=== PATIENT | female | born 1995 | race Caucasian/White ===

== ENCOUNTER 2018-12-04 17:40 | Emergency (ER) | payer BC, SELFPAY ==
[2018-12-04 17:40] VITALS: BP 139/71; PULSE 85; RESP 15; TEMP 36.7; O2SAT 98; BMI 21.7
--- NOTE | 2018-12-04 17:52 | RAD_ITS ---
STUDY: X-RAY - RIGHT FOOT CLINICAL: Female, 23 years old. Injury and pain. TECHNIQUE: 3 view(s) of the foot. COMPARISON: None. FINDINGS: Normal talus, calcaneus, and tarsal bones. Normal visualized subtalar, talonavicular, calcaneocuboid, tarsal and tarsometatarsal articulations. There is an oblique fracture within the mid/distal diaphysis of the fifth metatarsal. Normal metatarsophalangeal joint of the great toe. Normal interphalangeal joint of the great toe. Normal phalanges of the great toe. Normal second through fifth metatarsophalangeal joints. Normal interphalangeal joints and phalanges of the lesser toes. The soft tissue structures are unremarkable. RAD/Foot min 3 Views IMPRESSION: Fifth metatarsal fracture. Electronically Signed: Suellen Zamora MD at 18:37 EDT Tel , Service support ,
--- NOTE | 2018-12-04 17:53 | ED.DCSUM_ITS ---
- ER Visit Summary Date of Service: 12/04/18 Chief Complaint: Right foot pain History of Present Illness: The patient is a 23 F who presents with right foot pain that began last night. Patient states she was walking down some steps and stepped wrong. Patient states she felt a pop. Patient states her pain is worse with weightbearing and ambulation. Patient admits to increased swelling and bruising today. Patient denies any paresthesias or weakness. Patient denies any other injuries. Physical Examination: Vital signs are stable. Patient is afebrile. Patient is in no acute distress. Musculoskeletal exam reveals tenderness, edema, and ecchymosis over the lateral aspect of the right foot over the distal fourth and fifth metatarsals. There is no bony crepitance or obvious deformity. Range of motion was limited in all motions of the right foot secondary to pain. Pulses are equal bilaterally. Capillary refill is less than 2 seconds in all digits. Sensation was intact to light touch in all digits. Test Results: X-rays of the right foot were obtained. There is a midshaft fracture of the fifth metatarsal. There is minimal angulation. There is no displacement. Emergency Department Course and Treatment: Case was discussed with Dr. Gallo. He recommended placing the patient in a walking boot. Patient will follow up with him in the office. Patient was given a prescription for a short course of [place]. Patient was instructed to ice and elevate the right foot. Patient understood and was agreeable with the plan. All questions were answered. Disposition: Right fifth metatarsal fracture Impression: Discharge home This note was generated with [employer] dictation software. It may contain incorrect words, spelling, and punctuation that were not noted in review of the chart prior to signing ED Disposition - Plan for ED Patient: Disposition: Home or Assisted Living Diagnosis: Fracture of fifth metatarsal bone of right foot Instructions: FRACTURE, Foot Prescriptions: Hydrocodone Bitart/Apap 5-325 [Pitcairn 5MG-325MG] 1 tab PO Q6H PRN PRN 3 Days #10 tab PRN Reason: Pain Prescription Printed Referrals: Care Physician,No Primary [Primary Care Provider] - Mason Denis DO [STAFF PHYSICIAN] - 3-5 Days
== END 2018-12-04 20:18 | disposition home or self-care (01) ==
PROVIDERS: Emergency Provider Emergency Medicine
DX: S92.351A Displaced fracture of fifth metatarsal bone, right foot, initial encounter for closed fracture (principal); R11.0 Nausea; X50.1XXA Overexertion from prolonged static or awkward postures, initial encounter; Y93.01 Activity, walking, marching and hiking; Y92.9 Unspecified place or not applicable; F17.200 Nicotine dependence, unspecified, uncomplicated
CPT/HCPCS: 73630; 99283

== ENCOUNTER → 2020-02-23 | Outpatient (CLI) | payer BC, MEDICAID, SELFPAY ==
[2020-02-23 10:20] VITALS: BMI 21.7
[2020-02-23 18:19] LABS: Amphetamine Urine VISTA NEGATIVE (<1000 ng/mL); Barbiturate Urine VISTA NEGATIVE (< 200 ng/mL); Benzodiazepine Urine VISTA NEGATIVE (< 200 ng/mL); Cocaine Urine VISTA NEGATIVE (< 300 ng/mL); Ecstacy Urine VISTA NEGATIVE (< 500 ng/mL); Methadone Urine VISTA NEGATIVE (< 300 ng/mL); PCP Urine VISTA NEGATIVE (< 25 ng/mL); THC Urine VISTA NEGATIVE (< 50 ng/mL); Vista UDS pH Range 6
== END | disposition home or self-care (01) ==
LOC: LABSPEC 17:11
PROVIDERS: PCP Family Medicine; Referring Provider Obstetrics & Gynecology; Visit Provider Obstetrics & Gynecology
DX: Z34.80 Encounter for supervision of other normal pregnancy, unspecified trimester (principal)
CPT/HCPCS: 80307; 87086

== ENCOUNTER → 2020-03-26 09:46 | Outpatient (CLI) | payer BC, MEDICAID, SELFPAY ==
[2020-03-21 14:33] VITALS: BMI 23.1
[2020-03-26 10:23] LABS: Absolute Lymphocyte Count 2.94 X10^3/uL (0.83-4.51); Absolute Neutrophil Count 7.7 X10^3/uL (2.0-7.7); Basophil# 0.04 X10^3/uL; Basophil% 0.4 % (0-1); Eosinophil# 0.14 X10^3/uL; Eosinophils% 1.2 % (0-5); Hematocrit 34.4 % (37-47); Lymphocyte # 2.94 X10^3/ul (4.0); Lymphocyte % 25.8 % (19-41); Mean Corp Hgb Conc 34.9 g/dL (32-36); Mean Corpuscular Hgb 30.8 pg (27.0-32.0); Mean Corpuscular Volume 88.2 fL (81-99); Mean Platelet Vol. 10.3 fl (6.2-12.0); Monocyte# 0.54 X10^3/uL; Monocyte% 4.7 % (0-10); NRBC Flagged by Analyzer 0 % (0-5); Neutrophil # 7.68 X10^3/uL (2.7-7.7); Neutrophil % 67.5 % (47-70); Platelet Count 337 K/mm3 (150-450); RBC Distribution Width CV 12.7 % (11.6-14.6); RBC Distribution Width SD 40.6 fl (35.1-43.9); White Blood Count 11.4 K/mm3 (4.4-11.0)
[2020-03-26 14:40] LABS: HIV - WCH Non-Reactive (Nonreactive); Hepatitis B Surface Antigen Non-Reactive (Nonreactive); Hepatitis C Antibody Non-Reactive (Nonreactive); Rubella IgG 310.3 IU/mL
[2020-03-29 01:11] LABS: Rapid Plasmin Reagin (RPR) NONREACTIVE (NONREACTIVE)
== END ==
PROVIDERS: PCP Family Medicine; Referring Provider Obstetrics & Gynecology; Visit Provider Obstetrics & Gynecology
DX: Z34.81 Encounter for supervision of other normal pregnancy, first trimester (principal)
CPT/HCPCS: 36415; 85025; 86592; 86703; 86762; 86803; 86850; 86900; 86901; 87340

== ENCOUNTER → 2020-05-15 10:53 | Outpatient (CLI) | payer BC, MEDICAID, SELFPAY ==
[2020-05-15 10:38] VITALS: BMI 24.0
== END ==
PROVIDERS: PCP Family Medicine; Referring Provider Obstetrics & Gynecology; Visit Provider Obstetrics & Gynecology
DX: Z36.9 Encounter for antenatal screening, unspecified (principal)
CPT/HCPCS: 36415

== ENCOUNTER → 2020-07-12 10:23 | Outpatient (CLI) | payer BC, MEDICAID, SELFPAY ==
[2020-06-13 10:36] VITALS: BMI 25.3
[2020-07-12 10:41] LABS: Absolute Lymphocyte Count 1.86 X10^3/uL (0.83-4.51); Absolute Neutrophil Count 7.5 X10^3/uL (2.0-7.7); Basophil# 0.02 X10^3/uL; Basophil% 0.2 % (0-1); Eosinophil# 0.12 X10^3/uL; Eosinophils% 1.2 % (0-5); Hematocrit 35.7 % (37-47); Hemoglobin 11.8 g/dL (12.0-15.0); Lymphocyte # 1.86 X10^3/ul (4.0); Lymphocyte % 18.6 % (19-41); Mean Corp Hgb Conc 33.1 g/dL (32-36); Mean Corpuscular Hgb 30.2 pg (27.0-32.0); Mean Corpuscular Volume 91.3 fL (81-99); Mean Platelet Vol. 10.5 fl (6.2-12.0); NRBC Flagged by Analyzer 0 % (0-5); Neutrophil # 7.47 X10^3/uL (2.7-7.7); Neutrophil % 74.6 % (47-70); Platelet Count 296 K/mm3 (150-450); RBC Distribution Width CV 12.6 % (11.6-14.6); RBC Distribution Width SD 41.5 fl (35.1-43.9); Red Blood Count 3.91 M/mm3 (4.2-5.4)
[2020-07-12 10:54] LABS: Glucose Challenge Gest 1H 50g 101 mg/dL (70-140)
== END ==
PROVIDERS: PCP Family Medicine; Referring Provider Nurse Practitioner Women's Health; Visit Provider Nurse Practitioner Women's Health
DX: Z34.90 Encounter for supervision of normal pregnancy, unspecified, unspecified trimester (principal); Z13.1 Encounter for screening for diabetes mellitus
CPT/HCPCS: 36415; 82950; 85025

== ENCOUNTER 2020-07-14 06:21 | Emergency (ER) | payer OTHER, BC, MEDICAID, SELFPAY ==
[2020-07-12 10:36] VITALS: BMI 26.3
[2020-07-14 06:22] VITALS: BP 117/58; PULSE 90; RESP 16; TEMP 36.9; O2SAT 100; BMI 26.0
--- NOTE | 2020-07-14 06:33 | RAD_ITS ---
STUDY: X-RAY - LEFT KNEE REASON FOR EXAM: Female, 25 years old. H/O KNEE POPPING. PT FELL AT WORK TECHNIQUE: 3 view(s) of the knee. COMPARISON: None. FINDINGS: Normal visualized distal femur. Normal visualized proximal tibia and fibula. Normal proximal tibiofibular articulation. Normal medial femorotibial compartment. Normal lateral femorotibial compartment. Normal patellofemoral articulation. The soft tissue structures are unremarkable. RAD/Knee 3 Views IMPRESSION: Normal x-ray examination of the knee. Electronically Signed: Manish Vázquez MD at 7:13 EST Tel , Service support ,
--- NOTE | 2020-07-14 07:13 | ED.DCSUM_ITS ---
- ER Visit Summary Date of Service: 07/14/20 Chief Complaint: [Injury to left knee] History of Present Illness: The patient is a 25 F [presents to the emergency department complaint of an injury to the left knee that occurred this morning. Patient states that she turned while at work and her left knee popped causing her to fall onto her left side. Patient states that she has had this issue her entire life. She has this issue about every 3 months. Patient is 29 weeks . Work made her come in and get evaluated. She denies any abdominal pain or vaginal bleeding. Patient has minimal discomfort at this time.] Physical Examination: [HEENT-PERRLA, EOMI. Cranial nerves II through XII grossly intact. TMs clear. Mucous membranes moist. No adenopathy. Cardiovascular-regular rate and rhythm without murmur or ectopy Lungs-clear to auscultation, chest wall stable without crepitus or subcu emphysema Abdomen-normoactive bowel sounds, soft, nontender, no rebound or rigidity, no peritoneal signs. Extremities-intact ?4, normal range of motion, normal pulses, atraumatic. Left knee-patient has some minimal discomfort over the left knee just proximal to the patella that seems to reproduce her pain. There is no effusion noted. Ligamentously stable. Neurovascular intact distally. Good range of motion in flexion extension. No evidence of patellar subluxation at this time.] Test Results: [X-rays of the left knee obtained read by myself as no acute fractures or dislocations. Official report from radiology pending.] Emergency Department Course and Treatment: [Patient given a knee immobilizer. I suspect patient may have had a patellar subluxation that has since spontaneously reduced.] Treatment Plan: Patient will be referred to orthopedics for follow-up in 3 to 5 days. [] Disposition: [Discharged home in stable condition] Impression: [Left knee sprain-possible internal derangement] This note was generated with [employer] dictation software. It may contain incorrect words, spelling, and punctuation that were not noted in review of the chart prior to signing ED Disposition - Plan for ED Patient: Referrals: Sheldon Mac MD [Primary Care Provider] -
--- NOTE | 2020-07-14 07:16 | ED.DEP ---
ED Disposition - Plan for ED Patient: Instructions: ED Meniscal Injury Knee Poss Referrals: Sheldon Mac MD [Primary Care Provider] - Escobar Purcell DO [STAFF PHYSICIAN] - 3-5 Days
[2020-07-14 07:33] VITALS: BP 104/70; PULSE 103; RESP 20; O2SAT 100
== END 2020-07-14 08:14 | disposition home or self-care (01) ==
LOC: ED 07:23
PROVIDERS: Emergency Provider Emergency Medicine; PCP Family Medicine
DX: O9A.213 Injury, poisoning and certain other consequences of external causes complicating pregnancy, third trimester (principal); S83.92XA Sprain of unspecified site of left knee, initial encounter; W19.XXXA Unspecified fall, initial encounter; Y93.89 Activity, other specified; Y92.9 Unspecified place or not applicable; Y99.0 Civilian activity done for income or pay; O99.333 Smoking (tobacco) complicating pregnancy, third trimester; F17.290 Nicotine dependence, other tobacco product, uncomplicated; Z3A.29 29 weeks gestation of pregnancy
CPT/HCPCS: 73562; 99284

== ENCOUNTER → 2020-09-06 | Outpatient (CLI) | payer BC, MEDICAID, SELFPAY ==
[2020-09-06 15:16] VITALS: BMI 26.4
== END | disposition home or self-care (01) ==
LOC: LABSPEC 16:43
PROVIDERS: PCP Family Medicine; Visit Provider Obstetrics & Gynecology
DX: Z34.90 Encounter for supervision of normal pregnancy, unspecified, unspecified trimester (principal)
CPT/HCPCS: 87081

== ENCOUNTER 2020-09-07 22:30 | Inpatient (IN) | payer MEDICAID, SELFPAY ==
[2020-09-06 15:16] VITALS: BMI 26.4
[2020-09-07 22:23] VITALS: BMI 26.8
[2020-09-07 22:25] VITALS: BP 109/61; PULSE 91; O2SAT 98
[2020-09-07] MEDS: Lactated Ringers 500 ML 999 ML IV (22:40)
--- NOTE | 2020-09-07 22:45 | HP.PCM_ITS ---
- Problem List (1) Active labor at term Status: Acute (2) 36 weeks gestation of Status: Acute Comment: COVID test ordered 09/05/20 (sche 09/21 at 1:40pm) (3) History of tetanus, diphtheria, and acellular pertussis booster vaccination (Tdap) Status: Acute Comment: 07/12/20 (4) ASCUS of cervix with negative high risk HPV Status: Acute Comment: On pap 02/01/2020 - needs repeat cotesting in 3 years (5) Supervision of other normal Status: Acute Comment: PRR ROXANNE 09/28/20 girl Alis PC: Amy Lora BF: Sean (Redd-5) (6) Status: Acute Qualifiers: Comment: genetic- low risk female, carrier- neg and NTD- negative; NL anatomy History and Physical Date of Admission: 09/07/20 Intake Vital Signs 09/06/20 Height 5 ft 1 in 09/06/20 Weight: 140 lb 09/06/20 BMI 26.4 09/06/20 BP 99/74 Intake Visit Reasons: 37WK OB Chief Complaint: est ob Resource Specialist Required: No Is patient in pain?: No Allergies aspirin Allergy (Verified 09/06/20 15:18) Unknown Medications docosahexaenoic acid 200 mg capsule mg PO 02/23/20 history Confirmed 09/06/20 Last Menstral Period: 12/23/19 Zika: Zika virus screening: Negative : No PFSH PFSH Medical History No significant medical problems (Acute) Surgical History No significant past surgical history (Acute) Social History (Updated 09/06/20 @ 15:[address] Dione Hoffman MD) adopted: No household members: children housing: apartment number of children: 2 current occupational status: employed current occupation: [employer] pets and animals: Yes sexually active: Yes Smoking Status: Current every day smoker second hand exposure: No alcohol intake: never substance use type: does not use seatbelt use: always do you feel safe at home: Yes additional social history: [place]- Sean ([place] [employer]) Pregancy History 3 Elective abortions Hx Para 2 Spontaneous abortions Hx # Term Pregnancies Ectopic pregnancies Hx # Pregnancies Multiple births # of living children 2 Past Pregnancies Del. Date Name GA/Weeks Outcome Route Bth Weight Gen Labor Lgth Anesthesia Del Locatn Provider FOB Unknown 04/16/12 Guido 39 live - full term 7lbs Male 5 hours epidural [facility] [place] Unknown 08/01/15 Amy 41 live - full term 7lbs Female 9 hours epidural [facility] [place] Delivery Date: no complications Kaykay Cooper Delivery Date: decels during labor Kaykay Cooper HPI 37WK OB : Details: SHAINA DSOUZA is a 25 year old presents at 37w2d weeks in active labor for centimeters dilated with regular contractions OB Visit ROXANNE Calculator Estimated Delivery Date Method Current WG Current Estimate 09/28/20 LMP (Certain) 36w 6d Other Estimates 09/28/20 Ultrasound #1 36w 6d Expected Delivery Route/Plan / Labor Preferences- CB/BF classes: encouraged labor support person: Sean labor intervention preferences: pain management options preferred: epidural cut cord/dad catch: yes : yes PP control planned: considering IUD discussed possible routes of delivery and associated risks: special requests: Specific Issue/Plans flu vaccine: no tdap vaccine: yes rhogam: na LARC form signed: yes movement and labor precautions reviewed. Problem list reviewed and updated with the most current plan of care details and appropriate orders placed. Relevant counseling for the gestational age provided. Continue routine care and follow up unless otherwise noted in visit notes/problem list details Initial Weight: 120 lb Date EGA Weight BP Urine Prot Glucose FHR FuHt Pres Dilation Effaced St Visit Note 02/23/20 8w 6d 122 lb (+2 lb) 122 lb (+2 lb) 118/70 168 GP - CRL 20mm consistent with LMP. GP - CRL 20mm consistent with LMP. Had NOB at [facility] with all labs and pap. Will get ROR. 03/21/20 12w 5d 122 lb 8 oz (+2 lb 8 oz) 106/62 Negative Negative 160 GP - no cramping or bleeding. Anatomy scan order placed. 04/19/20 16w 6d 122 lb 4 oz (+2 lb 4 oz) 90/60 Negative Negative 154 NO VB, LOF. Denies concerns. NO VB, LOF. Denies concerns. FOB with patient today 05/15/20 20w 4d 127 lb (+7 lb) 106/58 Negative Negative 150 Sm- no vb lof good fm no regular ctx Sm- no vb lof good fm no regular ctx co back pain. physical therapy consult for back pain 06/13/20 24w 5d 134 lb 2 oz (+14 lb 2 oz) 104/58 Negative Negative 151 24 MH-No VB, LOF. Good FM. 07/12/20 28w 6d 139 lb 4 oz (+19 lb 4 oz) 118/60 Negative Negative 141 28 MH-No Vb, LOF. Good FM. 28 wk labs, tdap, larc. Considering IUD 07/26/20 30w 6d 139 lb 2 oz (+19 lb 2 oz) 120/78 Negative Negative 147 31 MH-NO VB, LOF. Good FM. Denies concerns. 08/10/20 33w 0d 142 lb 2 oz (+22 lb 2 oz) 110/72 Negative Negative 145 33 GP - no LOF, VB, DFM, ctx. Having pelvic pressure. Discussed supportive measure to help with discomfort. 08/24/20 35w 0d 138 lb 6 oz (+18 lb 6 oz) 120/62 Negative Negative 155 35 GP - no LOF, VB, DFM, ctx. Denies complaints. 09/06/20 36w 6d 140 lb (+20 lb) 99/74 Negative Negative 150 37 Cephalic 2 10 -3 Sm- no vb lof good fm no regular ctx gbs today ACOG First Trimester First Trimester: Desire for , Alcohol, Tobacco Cessation, Illicit/Recreational Drug/Substance Use, Intimate Partner Violence, Barriers to care, Unstable Housing, Communication Barriers, Environmental/Work Hazards, Anticipated Course of Care, Toxoplasmosis Precations, Use of Any medications, Sexual activity, Exercise, Dental Care, Sauna/Hot tub use, Seat Belt use, Childbirth classes/Hospital facilities, , Travel, Indicat ions for US and Screening for Aneuploidy Second Trimester Second Trimester: Signs and Symptoms of Labor, Selecting a care provider, Reproductive Life Planning, Care Planning, Depression/Anxiety and Intimate Partner Violence; discussed Tobacco Cessation Diagnostics Diagnostics Diagnostics Blood Type A POSITIVE 03/26/20 Antibody Screen NEGATIVE 03/26/20 Glucose 1 Hr 50 gm 101 mg/dL (70-140) 07/12/20 HIV 1&2 Antibody Non-Reactive (Nonreactive) 03/26/20 Rubella IgG Antibody 310.3 IU/mL 03/26/20 Hgb 11.8 g/dL (12.0-15.0) L 07/12/20 Hct 35.7 % (37-47) L 07/12/20 RPR NONREACTIVE (NONREACTIVE) 03/26/20 Details: HIV: Urine Culture: Sequential Screen: NIPT Screen: ROS Const Reports system reviewed and no additional complaints, except as documented Card Reports system reviewed and no additional complaints, except as documented Resp Reports system reviewed and no additional complaints, except as documented GI Reports system reviewed and no additional complaints, except as documented, Reports nausea Reports system reviewed and no additional complaints, except as documented Musc Reports system reviewed and no additional complaints, except as documented all other systems reviewed and negative Exam Const General: cooperative, healthy appearing, comfortable HENMT Head: normal to inspection Nose: external nose normal Face and sinus: normal facial exam Neck Neck: normal visual inspection, full ROM, no lymphadenopathy Thyroid: thyroid normal Chest Chest palpation & inspection: normal inspection of the chest Resp Effort & Inspection: normal respiratory effort GI Inspection: normal to inspection Palpation: soft, other (gravid uterus) Other: infant vertex and appropriate size for gestational age Other: Cervical Exam: 4 cm Extrem General: pedal edema Results POC Urinalysis 2 Dip (Clinic) Office Urine Glucose Negative Last Edit by Jordyn Jimenez on 09/06/20 15:2 3 Office Urine Protein Negative Last Edit by Jordyn Jimenez on 09/06/20 15:2 3 Assessment & Plan Problems 1. Z34.90 genetic- low risk female, carrier- neg and NTD- negative; NL anatomy 2. Supervision of other normal Z34.80 PRR ROXANNE 09/28/20 girl Alis PC: Amy Lora BF: Sean (Redd-5) 3. ASCUS of cervix with negative high risk HPV R87.610 On pap 02/01/2020 - needs repeat cotesting in 3 years 4. History of tetanus, diphtheria, and acellular pertussis booster vaccination (Tdap) Z92.29 07/12/20 5. 36 weeks gestation of Z3A.36 COVID test ordered 09/05/20 (sche 09/21 at 1:40pm) Patient presents IAL, plan expectant management for , pitocin/AROM PRN if needed. Pain management: Plans epidural. GBS negative. Management of any complications: None I have reviewed the [facility] and made any clinically relevant updates. Orders Orders: POC Urinalysis 2 Dip (Clinic) Today Culture, Group B Streptococcus Today Z34.90 Coding Level of Care Code OB Routine Diagnoses Z34.90 Supervision of other normal Z34.80 ASCUS of cervix with negative high risk HPV R87.610 History of tetanus, diphtheria, and acellular pertussis booster vaccination (Tdap) Z92.29 36 weeks gestation of Z3A.36
[2020-09-07 23:05] LABS: Absolute Lymphocyte Count 2.55 X10^3/uL (0.83-4.51); Absolute Neutrophil Count 7.2 X10^3/uL (2.0-7.7); Basophil# 0.02 X10^3/uL; Basophil% 0.2 % (0-1); Eosinophil# 0.06 X10^3/uL; Eosinophils% 0.6 % (0-5); Hematocrit 35.1 % (37-47); Hemoglobin 11.5 g/dL (12.0-15.0); Lymphocyte # 2.55 X10^3/ul (4.0); Lymphocyte % 24.2 % (19-41); Mean Corp Hgb Conc 32.8 g/dL (32-36); Mean Corpuscular Hgb 29.5 pg (27.0-32.0); Mean Platelet Vol. 10.8 fl (6.2-12.0); Monocyte# 0.66 X10^3/uL; Monocyte% 6.3 % (0-10); NRBC Flagged by Analyzer 0 % (0-5); Neutrophil # 7.19 X10^3/uL (2.7-7.7); Neutrophil % 68.1 % (47-70); Platelet Count 311 K/mm3 (150-450); RBC Distribution Width CV 12.9 % (11.6-14.6); RBC Distribution Width SD 42.3 fl (35.1-43.9); White Blood Count 10.5 K/mm3 (4.4-11.0)
[2020-09-07 23:09] LABS: ROM Internal Control Test YES-OK TO RESULT pt. (Internal QC)
[2020-09-07 23:10] LABS: ROM Patient Test Negative (Negative)
[2020-09-07] MEDS: Lactated Ringers 1,000 ML 200 ML IV (23:15)
[2020-09-07 23:46] VITALS: BP 99/56; PULSE 85
[2020-09-07 23:55] VITALS: PULSE 77; O2SAT 99
[2020-09-07 23:59] VITALS: PULSE 92; O2SAT 88
[2020-09-08] VITALS (58 sets, daily range): BP systolic 85–120; BP diastolic 50–67; PULSE 35–101; RESP 16–18; TEMP 35.9–37.2; O2SAT 85–100
[2020-09-08] MEDS: fentaNYL-bupivacaine (epidural) 100 ML BAG EPIDURAL ×2 (00:05→05:18)
[2020-09-08 00:21] LABS: Group B Strep DNA By PCR Negative (Negative); Internal Control PASS; Probe Check PASS; Specimen Processing Control PASS
[2020-09-08] MEDS: Ondansetron 4 MG/2 ML Vial IV (01:25)
[2020-09-08] MEDS: Lactated Ringers 500 ML 999 ML IV (01:25)
[2020-09-08] MEDS: Oxytocin 30 units/NS 500 ml 30 UNITS/500 ML IV.SOLN IV (03:50)
[2020-09-08] MEDS: proCHLORPERazine 10 MG/2 ML Vial IV (04:28)
[2020-09-08] MEDS: Lactated Ringers 1,000 ML 200 ML IV (04:38)
[2020-09-08] MEDS: Oxytocin 30 units/NS 500 ml 30 UNITS/500 ML IV.SOLN 334 UNITS IV (07:08)
--- NOTE | 2020-09-08 07:28 | PCM.OPRPT ---
Problem List (1) Active labor at term Status: Acute (2) 36 weeks gestation of Status: Acute Comment: COVID test ordered 09/05/20 (sche 09/21 at 1:40pm) (3) History of tetanus, diphtheria, and acellular pertussis booster vaccination (Tdap) Status: Acute Comment: 07/12/20 (4) ASCUS of cervix with negative high risk HPV Status: Acute Comment: On pap 02/01/2020 - needs repeat cotesting in 3 years (5) Supervision of other normal Status: Acute Comment: PRR ROXANNE 09/28/20 judah Snell PC: Amy Lora BF: Sean (Redd-5) (6) Status: Acute Qualifiers: Comment: genetic- low risk female, carrier- neg and NTD- negative; NL anatomy Vaginal Delivery Maternal Presentation: Active Labor ial Method of Induction: Pitocin Amniotic Membrane Rupture Type: Artificial Amniotic Fluid Description: Clear Date of Procedure: 09/08/20 Pre-Operative Diagnosis: ial Post-Operative Diagnosis: same Surgery/ Procedure Performed: Spontaneous Vaginal Delivery Type of Anesthesia: Epidural Description of Procedure: Patient began pushing and delivered the head in the SHERON presentation. The head was delivered atraumatically . The anterior and posterior shoulders delivered without complication followed by the rest of the infant and the was placed on the maternal abdomen. Delayed cord clamping was employed for approximately 60 seconds. Cord was clamped and cut and gentle traction was applied to the cord and the placenta delivered spontaneously immediately following it was noted to be intact with three-vessel cord. The perineum and vagina were inspected and noted to have no laceration. EBL was 50 cc. Patient and infant tolerated delivery well. Presentation: SHERON Placental Delivery Description: Spontaneous Placenta Disposition: [facility] Cord Vessel Description: 3 Vessels Cord Entanglement: None Estimated Blood Loss: 50 A gender: Female Episiotomy Description: None Laceration: None Medications given after delivery: IV Pitocin Complications: None Multi Select Codes - Urinary/Genital Urinary/Genital CPT Codes: 29000 Vaginal Delivery+ PP Care([facility])
--- NOTE | 2020-09-08 07:30 | DCINST_ITS ---
Discharge Diet: No Restrictions Discharge Activity: Return to Normal Activity, May not drive while taking narcotic pain medications., May Shower May resume sexual activity in: 4-6 weeks Call your doctor if your incision/area has: Continuous Slow Oozing, Sudden Increased Bleeding, Increased Pain/ Swelling, Increased Redness, Foul Smelling Discharge Additional Instructions: If you experience any of the following, contact your healthcare provider. * Bleeding that soaks a pad every hour for 2 hours * Fever 100.4 or higher * Unrelieved incision or abdominal pain * Swelling, redness, discharge or bleeding from your incision or episiotomy site * Your incision begins to separate * Problems urinating (including inability to urinate or burning while urinating). * Visual changes * Severe headache * Flu-like symptoms * Pain or redness in one of both of your breasts * Pain, warmth, tenderness or swelling in your legs, especially the calf area * Frequent nausea and vomiting * Symptoms of depression or anxiety If you experience any of the following, call 911 or go to the nearest Emergency Room. * Chest pain * Problems breathing * Seizure activity * Partial or complete paralysis of a body part, slurred speech, weakness or drooping of the face, or a sudden inability to walk or hold your balance Allergies/Adverse Reactions: Allergies aspirin Allergy (Mild, Verified 09/07/20 23:49) Unknown pt states uses asa and ibuprophen no problem Medications to take at Discharge Pnv No.95/Ferrous Fum/Folic AC [ Caplet] 1 each PO DAILY 09/07/20 Please Follow Up With: Dione Hoffman MD - [phone] When: Call to make an appointment with your doctor in 6 weeks. If you had elevated Blood pressure or 4th degree laceration you will need to be seen in 2 weeks. Primary Care Physician: Sheldon Mac MD [Primary Care Provider] - Test Results: Test results from this visit will be discussed in further detail at your follow- up appointment, if applicable.
--- NOTE | 2020-09-08 07:30 | PCM.DCVAG ---
Discharge Diet: No Restrictions Discharge Activity: Return to Normal Activity, May not drive while taking narcotic pain medications., May Shower May resume sexual activity in: 4-6 weeks Call your doctor if your incision/area has: Continuous Slow Oozing, Sudden Increased Bleeding, Increased Pain/ Swelling, Increased Redness, Foul Smelling Discharge Additional Instructions: If you experience any of the following, contact your healthcare provider. Bleeding that soaks a pad every hour for 2 hours Fever 100.4 or higher Unrelieved incision or abdominal pain Swelling, redness, discharge or bleeding from your incision or episiotomy site Your incision begins to separate Problems urinating (including inability to urinate or burning while urinating). Visual changes Severe headache Flu-like symptoms Pain or redness in one of both of your breasts Pain, warmth, tenderness or swelling in your legs, especially the calf area Frequent nausea and vomiting Symptoms of depression or anxiety If you experience any of the following, call 911 or go to the nearest Emergency Room. Chest pain Problems breathing Seizure activity Partial or complete paralysis of a body part, slurred speech, weakness or drooping of the face, or a sudden inability to walk or hold your balance Allergies/Adverse Reactions: Allergies aspirin Allergy (Mild, Verified 09/07/20 23:49) Unknown pt states uses asa and ibuprophen no problem Medications to take at Discharge Pnv No.95/Ferrous Fum/Folic AC [ Caplet] 1 each PO DAILY 09/07/20 Please Follow Up With: Dione Hoffman MD - [phone] When: Call to make an appointment with your doctor in 6 weeks. If you had elevated Blood pressure or 4th degree laceration you will need to be seen in 2 weeks. Primary Care Physician: Sheldon Mac MD [Primary Care Provider] - Test Results: Test results from this visit will be discussed in further detail at your follow-up appointment, if applicable.
--- NOTE | 2020-09-08 12:02 | NURSING ---
both parents are CPR certified
--- NOTE | 2020-09-08 12:03 | ED.RN ---
pt asymptomatic. denies feeling dizzy or lightheaded
[2020-09-08] MEDS: Acetaminophen 500 MG Tablet 1000 MG PO (16:38)
[2020-09-09] MEDS: Acetaminophen 500 MG Tablet 1000 MG PO ×2 (04:02→13:25)
[2020-09-09 04:05] VITALS: BP 98/50; PULSE 62; RESP 16; TEMP 36.6; O2SAT 97; O2SAT 98
[2020-09-09 04:06] VITALS: BP 98/50; PULSE 62
[2020-09-09 07:44] VITALS: BP 95/54; PULSE 58
[2020-09-09 08:00] VITALS: BP 95/54; PULSE 58; RESP 15; TEMP 36.6
--- NOTE | 2020-09-09 08:44 | PN.OBGYN_ITS ---
Patient Problems: Active and Suspected Problems (Last Reviewed 09/06/20 @ 15:19 by Jordyn Jimenez) Active labor at term (Acute) 36 weeks gestation of (Acute) COVID test ordered 09/05/20 (sche 09/21 at 1:40pm) History of tetanus, diphtheria, and acellular pertussis booster vaccination (Tdap) (Acute) 07/12/20 ASCUS of cervix with negative high risk HPV (Acute) On pap 02/01/2020 - needs repeat cotesting in 3 years Supervision of other normal (Acute) PRR ROXANNE 09/28/20 girl Alis PC: Amy Lora BF: Sean (Redd-5) (Acute) genetic- low risk female, carrier- neg and NTD- negative; NL anatomy Subjective: Patient doing well without complaints. Tolerating PO. Ambulating and voiding wit hout difficulty. feeding well. Denies chest pain, shortness of breath, calf pain/swelling, fevers, chills, lightheadedness. - Physical Exam Vitals/I&O's: Vital Signs Temp Pulse Resp BP Pulse Ox 97.9 F 58 L 15 95/54 L 97 09/09/20 08:00 09/09/20 08:00 09/09/20 08:00 09/09/20 08:00 09/09/20 04:05 Oxygen Delivery Method Room Air Weight: 141 lb 15.643 oz Body Mass Index (BMI) 26.8 Intake and Output for Last 24 Hours 09/07/20 09/08/20 09/09/20 23:59 23:59 23:59 Intake Total 500 / 500 2972.34 / 2972.34 Output Total 400 / 400 1800 / 1800 Balance 100 / 100 1172.34 / 1172.34 General: Alert, Oriented x3 Microbiology Past 72 Hours 09/07/20 23:00 Mucosa - Nose SARS-CoV-2 Antigen (Rapid) - Final Current Medications Acetaminophen (Acetaminophen 500 Mg Tablet) 1,000 mg PO Q8H PRN PRN PRN Reason: Pain Score 1-3 Last Admin: 09/09/20 04:02 Dose: 1,000 mg Documented by: Bisacodyl (Bisacodyl 10 Mg Suppository) 10 mg RC UD PRN PRN Reason: If no BM Dibucaine (Dibucaine 30 Gm Tube) 1 applic TOPICAL TID PRN PRN; Protocol PRN Reason: Discomfort Hydrocortisone (Hydrocortisone 2.5% Crm) 1 applic TOPICAL TID PRN PRN; Protocol PRN Reason: Discomfort Methylergonovine Maleate (Methylergonovine 0.2 Mg/Ml Ampul) 0.2 mg IM X1 PRN PRN Reason: Excess bleeding/uterine atony Ondansetron HCl (Ondansetron 4 Mg/2 Ml Vial) 4 mg IV Q4H PRN PRN PRN Reason: Nausea Oxycodone HCl (Oxycodone 5 Mg Tablet) 5 - 10 mg PO Q4H PRN PRN PRN Reason: Pain Score 4-10 Senna/Docusate Sodium (Senna/Docusate Sodium 1 Tablet) 1 - 2 tablet PO DAILY PRN PRN PRN Reason: Constipation Simethicone (Simethicone 80 Mg Tablet) 80 mg PO PCHS PRN PRN Reason: Indigestion/Stomach pain Sodium Chloride (0.9% Saline Lock 10 Ml Syringe) 5 - 15 ml IV UD PRN PRN Reason: SALINE FLUSH Medical Necessity - Tobacco Use Smoking Status: Former smoker Assessment/Plan All Active Problems Active labor at term (Acute) 36 weeks gestation of (Acute) History of tetanus, diphtheria, and acellular pertussis booster vaccination (Tdap) (Acute) ASCUS of cervix with negative high risk HPV (Acute) Supervision of other normal (Acute) (Acute) Other social stressor (Resolved) s/p PPD # 1 1. routine post delivery care 2. breast feeding- support given 3. rh positive 4. rubella immune
[2020-09-09 13:23] VITALS: BP 107/54; PULSE 62
[2020-09-09 13:27] VITALS: BP 107/54; PULSE 62; RESP 15; TEMP 36.5
== END 2020-09-09 14:30 | disposition home or self-care (01) | DRG 807 ==
LOC: WPOUT 22:33 → WP 09-08 07:12
PROVIDERS: Admitting Provider Obstetrics & Gynecology; PCP Family Medicine; Referring Provider Obstetrics & Gynecology; Visit Provider Obstetrics & Gynecology
DX: O34.43 Maternal care for other abnormalities of cervix, third trimester (principal); Z37.0 Single live birth; R87.620 Atypical squamous cells of undetermined significance on cytologic smear of vagina (ASC-US); O99.334 Smoking (tobacco) complicating childbirth; F17.200 Nicotine dependence, unspecified, uncomplicated; Z3A.37 37 weeks gestation of pregnancy
CPT/HCPCS: 59025; 59050; 84112; 85025; 86850; 86900; 86901; 87081; 87426; 87653; 99218; J7120; G0378; J2405

== ENCOUNTER 2021-08-13 10:25 | Outpatient (CLI) | payer MEDICAID, SELFPAY ==
[2021-08-13 11:25] LABS: hCG Titer Quant., Serum 276 mIU/mL (1-3)
== END 2021-08-13 23:59 | disposition home or self-care (01) ==
PROVIDERS: PCP Family Medicine; Referring Provider Obstetrics & Gynecology; Visit Provider Obstetrics & Gynecology
DX: N91.2 Amenorrhea, unspecified (principal)
CPT/HCPCS: 36415; 84702

== ENCOUNTER 2021-08-15 12:56 | Outpatient (CLI) | payer MEDICAID, SELFPAY ==
[2021-08-15 14:06] LABS: hCG Titer Quant., Serum 73 mIU/mL (1-3)
== END 2021-08-15 23:59 | disposition home or self-care (01) ==
LOC: PAVLAB 12:56
PROVIDERS: PCP Family Medicine; Referring Provider Obstetrics & Gynecology; Visit Provider Obstetrics & Gynecology
DX: N91.2 Amenorrhea, unspecified (principal)
CPT/HCPCS: 36415; 84702

== ENCOUNTER 2021-09-04 09:38 | Outpatient (CLI) | payer MEDICAID, SELFPAY ==
[2021-09-04 22:07] LABS: Chlamydia By Nucleic Acid AMP Negative (Negative)
[2021-09-04 22:13] LABS: Gonococcus By Nucleic Acid AMP Negative (Negative)
== END 2021-09-04 23:59 | disposition home or self-care (01) ==
LOC: LABSPEC 09:39
PROVIDERS: PCP Family Medicine; Visit Provider Nurse Practitioner Women's Health
DX: Z11.3 Encounter for screening for infections with a predominantly sexual mode of transmission (principal)
CPT/HCPCS: 87491; 87591

== ENCOUNTER → 2022-04-01 | Outpatient (CLI) | payer MEDICAID, SELFPAY ==
[2022-04-04 08:09] LABS: Chlamydia By Nucleic Acid AMP Negative (Negative)
[2022-04-05 18:59] LABS: Gonococcus By Nucleic Acid AMP Negative (Negative)
== END | disposition home or self-care (01) ==
PROVIDERS: PCP Family Medicine; Visit Provider Nurse Practitioner Women's Health
DX: N89.8 Other specified noninflammatory disorders of vagina (principal)
CPT/HCPCS: 87070; 87205; 87491; 87591

== ENCOUNTER → 2022-06-20 | Outpatient (CLI) | payer MEDICAID, SELFPAY ==
[2022-06-23 21:07] LABS: Chlamydia By Nucleic Acid AMP Positive (Negative)
[2022-06-23 22:07] LABS: Gonococcus By Nucleic Acid AMP Negative (Negative)
== END | disposition home or self-care (01) ==
LOC: LABSPEC 12:28
PROVIDERS: PCP Family Medicine; Visit Provider Registered Nurse
DX: N89.8 Other specified noninflammatory disorders of vagina (principal)
CPT/HCPCS: 87070; 87205; 87491; 87591

== ENCOUNTER → 2022-07-30 | Outpatient (CLI) | payer MEDICAID, SELFPAY ==
--- NOTE | 2022-07-30 13:13 | US_ITS ---
STUDY: ULTRASOUND OF THE FEMALE PELVIS - COMPLETE REASON FOR EXAM: Female, 27 years old. Check position of IUD LMP: 07/04/2022. TECHNIQUE: Transabdominal and Transvaginal TECHNICAL QUALITY: Adequate. COMPARISON: None. FINDINGS: The uterus is retroverted and is in a midline position. The uterus measures 9.9 cm x 6.2 cm x 4.9 cm. There is a Nabothian cyst of the cervix. The endometrium measures 17.1 mm in thickness, and is hyperechoic. There is no demonstrated endometrial mass. There is no demonstrated myometrial mass. I.U.D. - The patient does have an I.U.D. The right ovary is visualized. The right ovary measures 2.8 cm x 2.5 cm x 2 cm. There is a 2.1 cm x 1.8 cm x 1.8 cm heterogeneous hypoechoic density. Follow-up is recommended. There is no visualized right adnexal mass or complex lesion. There is normal arterial and normal venous vascularity. The left ovary is visualized. The left ovary measures 3.6 cm x 2.6 x 2.4 cm. There is no left ovarian cyst or ovarian mass. There is no visualized left adnexal mass or complex lesion. There is normal arterial and normal venous vascularity. There is no fluid in the cul-de-sac. The pre void volume of the bladder was 200 ml. US/Pelvic (Non ) IMPRESSION: IUD is within the endometrium. 2.1 sign by 1.8 cm x 1.8 cm complex cyst in the right ovary. Follow-up recommended. Electronically Signed: Kurt Santos MD at 15:27 EST ,
== END | disposition home or self-care (01) ==
LOC: US 13:12
PROVIDERS: PCP Family Medicine; Referring Provider Registered Nurse; Visit Provider Registered Nurse
DX: Z30.431 Encounter for routine checking of intrauterine contraceptive device (principal)
CPT/HCPCS: 76830; 76856

== ENCOUNTER → 2022-09-15 | Outpatient (CLI) | payer MEDICAID, SELFPAY ==
[2022-09-15 11:17] LABS: HIV - WCH Non-Reactive (Nonreactive); Hepatitis C Antibody Non-Reactive (Nonreactive); Syphilis Antibodies Non-reactive
[2022-09-16 08:18] LABS: HSV 1 IgG < 0.91 index (0.00-0.90); HSV 2 IgG < 0.91 index (0.00-0.90)
[2022-09-17 00:07] LABS: Chlamydia By Nucleic Acid AMP Negative (Negative); Gonococcus By Nucleic Acid AMP Negative (Negative)
== END | disposition home or self-care (01) ==
PROVIDERS: PCP Family Medicine; Referring Provider Nurse Practitioner Women's Health; Visit Provider Nurse Practitioner Women's Health
DX: Z11.3 Encounter for screening for infections with a predominantly sexual mode of transmission (principal); Z20.2 Contact with and (suspected) exposure to infections with a predominantly sexual mode of transmission; N89.8 Other specified noninflammatory disorders of vagina
CPT/HCPCS: 36415; 86695; 86696; 86703; 86780; 86803; 87070; 87205; 87491; 87591

== ENCOUNTER → 2022-10-22 | Outpatient (CLI) | payer MEDICAID, SELFPAY | END | disposition home or self-care (01) | LOC: LABSPEC 11:27 | PROVIDERS: PCP Family Medicine; Referring Provider Nurse Practitioner Women's Health; Visit Provider Nurse Practitioner Women's Health | DX: N89.8 Other specified noninflammatory disorders of vagina (principal) | CPT/HCPCS: 87070; 87205 ==

== ENCOUNTER → 2023-02-16 | Outpatient (CLI) | payer OTHER, MEDICAID, SELFPAY ==
[2023-02-19 12:09] LABS: Chlamydia By Nucleic Acid AMP Negative (Negative); Gonococcus By Nucleic Acid AMP Negative (Negative)
[2023-02-20 16:42] LABS: HPV Reflexed? NOT INDICATED
== END | disposition home or self-care (01) ==
PROVIDERS: PCP Family Medicine; Referring Provider Nurse Practitioner Women's Health; Visit Provider Nurse Practitioner Women's Health
DX: R87.610 Atypical squamous cells of undetermined significance on cytologic smear of cervix (ASC-US) (principal); Z11.3 Encounter for screening for infections with a predominantly sexual mode of transmission
CPT/HCPCS: 87491; 87591; 88175; G0145

== ENCOUNTER → 2023-10-28 | Outpatient (CLI) | payer MEDICAID, SELFPAY ==
--- NOTE | 2023-10-28 09:41 | US_ITS ---
INDICATION: follow up ovarian cyst EXAMINATION: Ultrasound US Transvaginal Non-OB TECHNIQUE: Transvaginal (for optimal evaluation of the adnexa) pelvic ultrasound was performed. Grayscale, spectral waveform, and color flow Doppler evaluation of the adnexa. COMPARISON: Prior study dated: 07/30/2022 FINDINGS: UTERUS: Retroverted. The uterus measures 8.5 x 5.4 x 4.4 cm. There is no uterine mass. The endometrial stripe measures 11 mm in AP diameter which is within normal limits. RIGHT OVARY: 3 x 3 x 2.2 cm. Non-enlarged, normal echogenicity. There is normal arterial inflow and venous outflow present in the right ovary. LEFT OVARY: 3.3 x 3 x 2.1 cm. Non-enlarged, normal echogenicity. There is normal arterial inflow and venous outflow present in the left ovary. FREE FLUID: There is moderate amount of free fluid in the cul-de-sac. US/Transvaginal Non- IMPRESSION: 1. Moderate amount of free fluid in the cul-de-sac. 2. No pelvic mass is seen. Electronically Signed: Jordan Tapia MD at 10:48 EDT ,
== END | disposition home or self-care (01) ==
LOC: US 09:40
PROVIDERS: PCP Family Medicine; Referring Provider Advanced Practice Midwife; Visit Provider Advanced Practice Midwife
DX: N83.209 Unspecified ovarian cyst, unspecified side (principal)
CPT/HCPCS: 76830

== ENCOUNTER → 2024-05-11 | Outpatient (CLI) | payer MEDICAID, SELFPAY ==
[2024-05-16 09:22] LABS: Chlamydia By Nucleic Acid AMP Negative (Negative); Gonococcus By Nucleic Acid AMP Negative (Negative)
== END | disposition home or self-care (01) ==
LOC: LABSPEC 11:29
PROVIDERS: PCP Family Medicine; Referring Provider Nurse Practitioner Women's Health; Visit Provider Nurse Practitioner Women's Health
DX: Z11.3 Encounter for screening for infections with a predominantly sexual mode of transmission (principal); R10.2 Pelvic and perineal pain
CPT/HCPCS: 87070; 87205; 87491; 87591

== ENCOUNTER 2024-11-30 10:11 | Inpatient (IN) | payer MEDICAID, SELFPAY ==
[2024-11-30] VITALS (11 sets, daily range): BP systolic 97–131; BP diastolic 61–102; PULSE 90–124; RESP 16–23; TEMP 36.9–39.6; O2SAT 97–100; BMI 26.6; BMI 27.3
--- NOTE | 2024-11-30 10:22 | EKG12_ITS ---
Test Reason : UTI Blood Pressure : */* mmHG Vent. Rate : 109 BPM Atrial Rate : 109 BPM P-R Int : 144 ms QRS Dur : 78 ms QT Int : 318 ms P-R-T Axes : 21 -22 15 degrees QTcB Int : 428 ms Sinus tachycardia Otherwise normal ECG Confirmed by OLVIN CAMPOS, SALAZAR ([id number]), acquisition editor HAILE VILLAGOMEZ ([id number]) on 12/01/2024 10:04:56 AM Referred By: Confirmed By: SALAZAR BAH MD
--- NOTE | 2024-11-30 10:23 | EDS_ITS ---
HPI History of Present Illness Chief Complaint: Complaint Narrative Narrative: 29-year-old female presents with dark urine and fever that started Thursday. She states that approximately 2 days ago she noticed she was having darker urine. She has history of UTI after catheterization 4 years ago and sepsis. She relates history that she noticed dark urine 2 days ago, then started having fevers and skin sensitivity and feeling chilled. She went to urgent care yesterday because of the fevers/chills, states he did a urinalysis but told her that she was going septic and did not prescribe her antibiotics. While patient did not come to the emergency department as recommended yesterday, overnight she states that her fever broke, but she presents today because she has a urinary tract infection. [facility] Medical History ASCUS of cervix with negative high risk HPV No significant medical problems Home Medications ?Medication ?Instructions ?Recorded ?Last Taken ?Type multivitamin 1 tab PO DAILY 09/03/21 Unkn own History Allergy/AdvReac Type Severity Reaction Status Date / Time aspirin Allergy Mild Unknown Verified 11/30/24 10:12 Surgical History No significant past surgical history Social History adopted: No household members: children housing: apartment number of children: 2 current occupational status: employed current occupation: [employer] pets and animals: Yes sexually active: Yes Smoking Status: Former smoker second hand exposure: No alcohol intake: never substance use type: does not use seatbelt use: always do you feel safe at home: Yes ROS ROS ED ROS Narrative Review of systems positive for fever, chills, and dark urine. No chest pain or shortness of breath, fever broke yesterday. EXAM Physical Exam Narrative Exam Narrative: Afebrile. Vital signs noted. Nontoxic-appearing. Cardiovascular examination reveals mild tachycardia. Lungs clear to auscultation bilaterally. Abdomen soft and nontender without guarding or rebound. Neurological examination nonfocal, nonlateralizing. Const Vital Signs: 11/30/24 10:11 11/30/24 10:11 Temperature 98.5 F Temperature Source Oral Pulse Rate 116 H 124 H Respiratory Rate 22 H Blood Pressure 118/83 H Blood Pressure Mean 94 Pulse Ox 98 Oxygen Delivery Method Room Air MDM MDM MDM Narrative Medical decision making narrative: Differential diagnosis includes but not limited to dehydration versus other electrolyte abnormality versus SIRS. Sepsis workup was pursued because of her tachycardia.. Discharge Plan Triage Chief Complaint: Complaint ED Provider: Dennys Orta Dx/Rx/DC Orders Prescriptions: No Action multivitamin Tablet 1 tab PO DAILY Primary Care Provider: Sheldon Mac Referrals: Sheldon Mac MD [Primary Care Provider] - Print Language: Arabic
--- NOTE | 2024-11-30 10:23 | EX.ED.DYSGE1 ---
HPI History of Present Illness Chief Complaint: Complaint Narrative Narrative: 29-year-old female presents with dark urine and fever that started Thursday. She states that approximately 2 days ago she noticed she was having darker urine. She has history of UTI after catheterization 4 years ago and sepsis. She relates history that she noticed dark urine 2 days ago, then started having fevers and skin sensitivity and feeling chilled. She went to urgent care yesterday because of the fevers/chills, states he did a urinalysis but told her that she was going septic and did not prescribe her antibiotics. While patient did not come to the emergency department as recommended yesterday, overnight she states that her fever broke, but she presents today because she has a urinary tract infection. [facility] Medical History ASCUS of cervix with negative high risk HPV No significant medical problems Home Medications ?Medication ?Instructions ?Recorded ?Last Taken ?Type acetaminophen 500 mg capsule 1,000 mg PO Q6H PRN fever or pain 11/30/24 11/29/24 History Allergy/AdvReac Type Severity Reaction Status Date / Time aspirin Allergy Mild Unknown Verified 11/30/24 10:12 Surgical History No significant past surgical history Social History adopted: No household members: children housing: apartment number of children: 2 current occupational status: employed current occupation: [employer] pets and animals: Yes sexually active: Yes Smoking Status: Former smoker second hand exposure: No alcohol intake: never substance use type: does not use seatbelt use: always do you feel safe at home: Yes ROS ROS ED ROS Narrative Review of systems positive for fever, chills, and dark urine. No chest pain or shortness of breath, fever broke yesterday. EXAM Physical Exam Narrative Exam Narrative: Afebrile. Vital signs noted. Nontoxic-appearing. Cardiovascular examination reveals mild tachycardia. Lungs clear to auscultation bilaterally. Abdomen soft and nontender without guarding or rebound. Neurological examination nonfocal, nonlateralizing. Const Vital Signs: 11/30/24 10:11 11/30/24 10:11 11/30/24 10:16 Temperature 98.5 F 98.5 F Temperature Source Oral Oral Pulse Rate 116 H 124 H 105 H Respiratory Rate 22 H 22 H Blood Pressure 118/83 H 116/69 Blood Pressure Mean 94 84 Pulse Ox 98 97 Oxygen Delivery Method Room Air Room Air 11/30/24 10:22 11/30/24 11:16 11/30/24 12:00 Temperature 98.6 F 99.4 F H Temperature Source Oral Oral Pulse Rate 95 90 Respiratory Rate 23 H 20 H Blood Pressure 115/65 131/77 H Blood Pressure Mean 81 95 Pulse Ox 100 100 Oxygen Delivery Method Room Air Room Air Room Air 11/30/24 13:00 Temperature 102.2 F H Temperature Source Oral Pulse Rate 91 Respiratory Rate 19 H Blood Pressure 97/67 Blood Pressure Mean 78 Pulse Ox 100 Oxygen Delivery Method Room Air Sepsis Attestation Sepsis Alert: Yes Sepsis Attestation: Agree w/Sepsis Date exam was performed: 11/30/24 Time exam was performed: 13:00 Possible Source of Sepsis: Genitourinary Sepsis Organ Dysfunction Criteria Present: None Supportive Findings: Fever 102.2 ?F, leukocytosis, intermittent tachycardia. Fluid Resuscitation Fluid resuscitation indicated?: Yes Fluid Resuscitation ordered: 30 ml/kg fluid bolus ordered (Second liter) Amount of fluid ordered: 2,000 Sepsis Note Date exam was performed: 11/30/24 Time exam was performed: 14:03 Sepsis Attestation: Sepsis re-evaluation was performed Response to fluids: Fluid responsive hypotension MDM MDM MDM Narrative Medical decision making narrative: Differential diagnosis includes but not limited to dehydration versus other electrolyte abnormality versus SIRS. Sepsis workup was pursued because of her tachycardia. Initially she was bolused 1 L of IV fluids and had heart rate in the 90s. I reviewed her laboratory work and she has a leukocytosis of 24,000 with hemoglobin normal at 13.7, hematocrit 40.0, platelet count normal at 295. Electrolyte panel is remarkable for CO2 slightly low at 20.5 glucose elevated at 137 with normal anion gap of 14. Lactic acid normal at 1.0. Serum is negative. Urinalysis is positive for nitrites with 50-100 WBCs and 1+ bacteria. Patient then spiked a fever of 102.2 ?F. I ordered Tylenol 650 mg orally as well as Rocephin 2 g. Cultures are currently pending. Given her sepsis from UTI, I discussed the patient with the hospitalist for admission. I discussed the patient with Dr. Fountain. He would like a CT of the abdomen and pelvis performed in the emergency department prior to admission. She did have elevated LFTs as well. Sepsis alert was instituted. He would like her to have another liter of IV fluids as well. Disposition is admitted to the PCU in stable condition. History & Record Review Discussion w/independent historian: Patient Additional record(s) reviewed:: Prior ED visit Lab Data Attestation: I reviewed the patient's lab results. Labs: Laboratory Results - last 24 hr 11/30/24 11/30/24 10:40 12:18 WBC 24.0 H RBC 4.52 Hgb 13.7 Hct 40.0 MCV 88.5 MCH 30.3 MCHC 34.3 RDW Std Deviation 41.7 RDW Coeff of Robbi 12.7 Plt Count 295 MPV 10.7 Immature Gran % (Auto) 0.700 Neut % (Auto) 88.2 H Lymph % (Auto) 4.2 L [place] % (Auto) 6.7 Eos % (Auto) 0.0 Baso % (Auto) 0.2 Absolute Neuts (auto) 21.2 H Absolute Lymphs (auto) 1.00 Nucleated RBC % 0 Differential Comment SCANNED Sodium 134 Potassium 3.8 Chloride 100 Carbon Dioxide 20.5 L Anion Gap 14 BUN 12 Creatinine 0.93 Estim Creat Clear Calc 75.85 Est GFR (MDRD) Non-Af 85 BUN/Creatinine Ratio 13.0 Glucose 137 H Lactic Acid 1.0 Calcium 9.3 Total Bilirubin 1.35 H AST 73 H ALT 147 H Alkaline Phosphatase 182 H Total Protein 7.7 Albumin 4.4 Globulin 3.3 Albumin/Globulin Ratio 1.3 Serum , Qual NEGATIVE Urine Color Yellow Urine Clarity Clear Urine pH 6.0 Ur Specific [place] 1.010 Urine Protein 30 H Urine Glucose (UA) Normal Urine Ketones Negative Urine Occult Blood 25 H Urine Nitrite Positive H Urine Bilirubin Negative Urine Urobilinogen 1 H Ur Leukocyte Esterase 500 H Urine RBC 0-5 SEEN Urine WBC 50-100 SEEN Ur Squamous Epith Cells 0-5 SEEN Urine Bacteria 1+ Urine Mucus 0 SEEN Management Discussion w/another healthcare provider: Hospitalist Discharge Plan Dx/Rx/DC Orders Clinical Impression: Sepsis, UTI (urinary tract infection), Elevated LFTs Disposition Disposition: Acute Care [facility]
[2024-11-30] MEDS: 0.9% Normal Saline (1000mL) 1,000 ML 999 ML IV ×2 (10:58→14:11)
[2024-11-30 11:07] LABS: Hematocrit 40.0 % (37-47); Hemoglobin 13.7 g/dL (12.0-15.0); Immature Granulocytes Count 0.170 X10^3/uL (0.0-0.0); Mean Corp Hgb Conc 34.3 g/dL (32-36); Mean Corpuscular Volume 88.5 fL (81-99); Mean Platelet Vol. 10.7 fl (6.2-12.0); NRBC Flagged by Analyzer 0 % (0-5); POSITIVE DIFFERENTIAL YES; Platelet Count 295 K/mm3 (150-450); RBC Distribution Width CV 12.7 % (11.6-14.6); RBC Distribution Width SD 41.7 fl (35.1-43.9); Red Blood Count 4.52 M/mm3 (4.2-5.4); White Blood Count 24.0 K/mm3 (4.4-11.0)
[2024-11-30 11:11] LABS: Differential Indicated SCAN CRITERIA MET
[2024-11-30 11:28] LABS: Differential Comment SCANNED
[2024-11-30 11:38] LABS: Internal QC Validated? YES +Cl - CLEAR BKGD; Pregnancy, Serum, hCG Quali. NEGATIVE Negative; Record Kit Lot#, Serum Preg. 0000947241
[2024-11-30 11:53] LABS: AST(SGOT) 73 U/L (<=31); Alanine Aminotransfer ALT/SGPT 147 U/L (<=34); Albumin, Serum 4.4 g/dL (3.5-5.0); Alkaline Phosphatase 182 U/L (35-104); Anion Gap 14 (5-15); BUN 12 mg/dL (4-19); BUN/Creat Ratio 13.0 RATIO (10-20); Calcium,Total 9.3 mg/dL (7.6-11.0); Carbon Dioxide 20.5 mmol/L (21.0-32.0); Chloride 100 mmol/L (98-108); Estimated Creatinine Clearance 75.85 ml/min (50-250); Globulin 3.3 g/dL (2.2-4.2); Glucose 137 mg/dL (70-99); Potassium 3.8 mmol/L (3.3-5.1)
[2024-11-30 12:22] LABS: Mucous, Urine 0 SEEN /hpf (<or=2+)
[2024-11-30 12:58] LABS: Color, Urine Yellow (Yellow); Glucose, Dipstick Normal (Normal); Ketone-Dipstick Negative (Negative); Leukocyte Esterase-Dipstick 500 /ul (Negative); Nitrite-Dipstick Positive (Negative); Occult Blood-Urine 25 /ul (Negative); Protein-Dipstick 30 mg/dl (Negative); Specific Gravity, Urine 1.010 (1.002-1.030); Urine Bilirubin Dipstick Negative (Negative)
[2024-11-30 13:20] LABS: Squamous Epithelial Cells - UA 0-5 SEEN /hpf (5-10)
[2024-11-30 13:22] LABS: Red Blood Cells-Urine 0-5 SEEN /hpf (0-5)
--- NOTE | 2024-11-30 13:58 | HP.PCM.HOS_ITS ---
HPI - General General Date of Admission: 11/30/24 Date of Service: 11/30/24 Chief Complaint: Fevers with concern for UTI HPI Narrative SHAINA DSOUZA, is a 29 F who presented to [facility] ED on 11/30/2024 with fevers with concern for UTI. 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 She reports history of UTI with sepsis about 4 years ago. She does not remember needing pressor medications to keep her blood pressure up. 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 She has 3 children. She previously had an IUD in place as of 2021 but it was removed prior to the visit in 2023. She notably does have a history of chlamydia that was treated back in June 2022. Has had STI testing done since then that has been negative. Patient notes that her last sexual activity was about 2 months ago. However, she does note that her boyfriend then did tell her that he had sexual relations with multiple other partners. Patient states that she had fevers and dark urine starting 2 days ago. She went to urgent care for this to did a urinalysis but then recommended she come to the ED for further evaluation. In the ED today she was febrile to 102F and tachycardic to the low 120s. UA showed positive nitrates, 500 leukocyte esterase, 50-100 WBCs, 1+ bacteria. test was negative. Labs otherwise notable for WBC count 24,000 and mildly elevated LFTs. She was given 1 L of IV fluids and a dose of IV ceftriaxone, and her blood pressure did drop to the 90s over 60s after that. She was initiated on sepsis protocol at that time and hospitalist was contacted for admission. I saw the patient at bedside in the ED. Patient was very pleasant. She was mildly fatigued. But otherwise laying back comfortably in bed and in no acute distress. She reported mild right-sided flank pain. Denied any suprapubic pain or tenderness or right upper quadrant pain. She denied any vaginal discharge. Notes that she does have a history of frequent yeast infections but has not had one for some time now. No other acute concerns currently. Will be admitted for further management. [facility] Medical History ASCUS of cervix with negative high risk HPV No significant medical problems Home Medications ?Medication ?Instructions ?Recorded ?Last Taken ?Type acetaminophen 500 mg capsule 1,000 mg PO Q6H PRN fever or pain 11/30/24 11/29/24 History Allergy/AdvReac Type Severity Reaction Status Date / Time aspirin Allergy Mild Unknown Verified 11/30/24 10:12 Surgical History No significant past surgical history Social History adopted: No household members: children housing: apartment number of children: 2 current occupational status: employed current occupation: [employer] pets and animals: Yes sexually active: Yes Smoking Status: Former smoker second hand exposure: No alcohol intake: never substance use type: does not use seatbelt use: always do you feel safe at home: Yes ROS Constitutional Constitutional: Reports chills, fatigue, fever(s) and malaise; Denies weakness Eyes Eyes: Denies change in vision Cardiovascular Cardiovascular: Denies chest pain Respiratory/Chest Respiratory/Chest: Denies shortness of breath at rest Gastrointestinal Gastrointestinal: Denies abdominal pain Genitourinary Genitourinary: Reports burning urination, dysuria and other Details: right sided flank pain ; Denies difficulty urinating, hematuria or urinary frequency Musculoskeletal Musculoskeletal: Denies arthralgias or myalgias Neurologic Neurologic: Denies dizziness, focal weakness or headache(s) Vital Signs Vital Signs Vital Signs: 11/30/24 10:11 11/30/24 10:11 11/30/24 10:16 Temperature 98.5 F 98.5 F Temperature Source Oral Oral Pulse Rate 116 H 124 H 105 H Respiratory Rate 22 H 22 H Blood Pressure 118/83 H 116/69 Blood Pressure Mean 94 84 Pulse Ox 98 97 Oxygen Delivery Method Room Air Room Air 11/30/24 10:22 11/30/24 11:16 11/30/24 12:00 Temperature 98.6 F 99.4 F H Temperature Source Oral Oral Pulse Rate 95 90 Respiratory Rate 23 H 20 H Blood Pressure 115/65 131/77 H Blood Pressure Mean 81 95 Pulse Ox 100 100 Oxygen Delivery Method Room Air Room Air Room Air 11/30/24 13:00 Temperature 102.2 F H Temperature Source Oral Pulse Rate 91 Respiratory Rate 19 H Blood Pressure 97/67 Blood Pressure Mean 78 Pulse Ox 100 Oxygen Delivery Method Room Air Weight Weight: 64.1 kg Body Mass Index (BMI) 26.6 Physical Exam Const alert, oriented x3, no apparent distress, average body habitus, healthy appearing and well nourished Constitutional Narrative: Pleasant younger female, mildly fatigued appearing but otherwise laying back comfortably in bed, conversing normally, in no acute distress. General Appearance: cooperative, comfortable, well kempt and well developed HEENT normocephalic, head/scalp atraumatic, hearing grossly normal bilaterally, nasal mucous membranes and turbinates normal and moist oral mucous membranes Eyes PERRL, EOMs intact bilaterally and conjunctivae normal Neck full ROM Chest inspection of chest normal Resp normal respiratory effort, normal air movement, no use of accessory muscles and clear to auscultation bilaterally Cardio no murmurs and peripheral pulses 2+ throughout Cardio Narrative: Tachycardic, regular rhythm. GI normal to inspection, nondistended, normoactive bowel sounds, soft to palpation, non-tender and non-distended Narrative: Mild right-sided CVA tenderness. Bladder / Kidney Exam: bladder normal to palpation Back/Spine normal ROM Extremity normal to inspection, full ROM and no pedal edema Skin no rashes or lesions noted Psych mental status grossly normal Results Lab / Micro Data 11/30/24 10:40 11/30/24 10:40 Labs: Laboratory Results - last 24 hr 11/30/24 10:40: WBC 24.0 H, RBC 4.52, Hgb 13.7, Hct 40.0, MCV 88.5, MCH 30.3, MCHC 34.3, RDW Std Deviation 41.7, RDW Coeff of Robbi 12.7, Plt Count 295, MPV 10.7, Immature Gran % (Auto) 0.700, Neut % (Auto) 88.2 H, Lymph % (Auto) 4.2 L, [place] % (Auto) 6.7, Eos % (Auto) 0.0, Baso % (Auto) 0.2, Absolute Neuts (auto) 21.2 H, Absolute Lymphs (auto) 1.00, Nucleated RBC % 0, Differential Comment SCANNED, Sodium 134, Potassium 3.8, Chloride 100, Carbon Dioxide 20.5 L, Anion Gap 14, BUN 12, Creatinine 0.93, Estim Creat Clear Calc 75.85, Est GFR (MDRD) Non-Af 85, BUN/Creatinine Ratio 13.0, Glucose 137 H, Lactic Acid 1.0, Calcium 9.3, Total Bilirubin 1.35 H, AST 73 H, ALT 147 H, Alkaline Phosphatase 182 H, Total Protein 7.7, Albumin 4.4, Globulin 3.3, Albumin/Globulin Ratio 1.3, Serum , Qual NEGATIVE 11/30/24 12:18: Urine Color Yellow, Urine Clarity Clear, Urine pH 6.0, Ur Specific [place] 1.010, Urine Protein 30 H, Urine Glucose (UA) Normal, Urine Ketones Negative, Urine Occult Blood 25 H, Urine Nitrite Positive H, Urine Bilirubin Negative, Urine Urobilinogen 1 H, Ur Leukocyte Esterase 500 H, Urine RBC 0-5 SEEN, Urine WBC 50-100 SEEN, Ur Squamous Epith Cells 0-5 SEEN, Urine Bacteria 1+, Urine Mucus 0 SEEN Assessment & Plan Assessment/Plan (1) UTI (urinary tract infection): (2) Elevated LFTs: PLAN: Plan Patient is a 29-year-old female who presented [facility] ED on 11/30/2024 with fevers and concern for UTI. 1. UTI with concern for sepsis, concern for STI ? Admit under inpatient status to PCU. UA with positive nitrites, 500 leukocyte esterase, 50-100 WBCs, 1+ bacteria. Met SIRS criteria with tachycardia, fever and leukocytosis but otherwise did not meet sepsis criteria. However, her BP did drop to the 90s over 60s in the ED after antibiotic administration despite already receiving 1 L of fluids, so will proceed with sepsis fluids and give 2 L of fluids total. Reports history of urosepsis without need for pressors, see HPI for further details. Also has history of chlamydia in 2022 that was treated with repeat test negative. Last intercourse about 2 months ago but her partner reported multiple other partners then. Will send labs for STI testing for chlamydia, gonorrhea, syphilis, trichomonas and HIV. Hepatitis panel also sent as noted below. Given elevated LFTs and flank pain with normal creatinine, will obtain CT abdomen pelvis with IV contrast for further evaluation. Will treat with IV ceftriaxone for now, follow-up urine culture and blood cultures. 2. Elevated LFTs ? T. bili 1.35, AST 73, ALT 147, alk phos 182 on admit. Last LFTs in our system were from 2014; T. bili was normal then but her AST/ALT/alk phos were mildly elevated then as well. CT abdomen pelvis ordered for further evaluation as above. Hepatitis panel ordered as well. DVT prophylaxis: Lovenox CODE STATUS: Full code, verified Expected disposition: Home, TBD Total clinical time spent by myself addressing the patient's medical issues, reviewing all the data, and collaborating with patient's care team: 75 minutes. Charges/Coding Visit Charges Inpatient E&M: 39151 Init Hosp L3
--- NOTE | 2024-11-30 13:58 | CT_ITS ---
PROCEDURE: ABDOMEN/PELVIS W IV CONT ONLY 11/30/2024 REASON FOR EXAM: ELEVATED LFTS TECHNIQUE: ABDOMEN/PELVIS W IV CONT ONLY Coronal and Sagittal reconstruction series were provided. CONTRAST: Isovue-300 VOLUME: 75 mL intravenous One or more dose reduction techniques were used (e.g., Automated exposure control, adjustment of the mA and/or kV according to patient size, use of iterative reconstruction technique. RADIATION DOSE SUMMARY: CTDlvol: 18.69 mGy DLP: 592.71 mGycm COMPARISON: None. FINDINGS: Lung bases: Unremarkable Liver: Normal density, without evidence of hepatomegaly. No intrahepatic biliary ductal dilation is seen. No focal abnormality is evident. Gallbladder: Normal appearance. Spleen: Normal size. Pancreas: Normal size without evidence of mass surrounding inflammation or ductal dilation. Adrenals: Unremarkable. Kidneys: In the medial right inferior renal cortex, an ill-defined hypodense structure is measured at approximately 15 x 15 x 20 mm. Differential diagnosis includes hemorrhagic cyst neoplastic process. Suggest further evaluation with renal sonography, initially. Bladder: Unremarkable Reproductive Organs: Normal uterine size and contour. Ovaries are unremarkable. Bowel: Moderate stool burden. Unremarkable appearance, otherwise Appendix: A normal-appearing vermiform appendix is seen Lymph nodes: Unremarkable. Vasculature: The abdominal aorta and IVC are normal. Peritoneum / Retroperitoneum: No significant free fluid collection is noted Bones: No significant abnormality is seen. CT/Abdomen/Pelvis W IV Cont ONLY IMPRESSION: 1. In the medial right inferior renal cortex, an ill-defined hypodense structur e is measured at approximately 15 x 15 x 20 mm. Differential diagnosis includes hemorrhagic cyst neoplastic process. Suggest fu rther evaluation with renal sonography, initially. 2. Unremarkable appearance of the liver, gallbladder, and pancreas. Reading Location: [place] [id number]
[2024-11-30] MEDS: Ceftriaxone 2 GM in 0.9% Normal Saline (50mL MB+) 50 ML IV (14:10)
[2024-11-30 15:06] LABS: HIV Nonreactive (Nonreactive); Syphilis Antibodies Nonreactive (Nonreactive)
[2024-11-30 15:08] LABS: Prothrombin Time (Protime)PT. 16.8 SECONDS (11.7-14.9)
--- NOTE | 2024-11-30 16:59 | US_ITS ---
PROCEDURE: KIDNEY AND BLADDER 11/30/2024 REASON FOR EXAM: ABNORMAL CT OF RIGHT KIDNEY TECHNIQUE: KIDNEY AND BLADDER COMPARISON: 11/30/2024 CT. FINDINGS: Right kidney measures 8.9 cm in length. No calculi or hydronephrosis. Right kidney isoechoic medial 2.4 x 2.9 x 1.9 cm circumscribed lesion suspicious for a mass. Left kidney measures 11.0 cm in length. No calculi or hydronephrosis. Urinary bladder is unremarkable. US/Kidney and Bladder IMPRESSION: Right kidney masslike lesion. Further characterization with renal mass protoco l CT or MRI is recommended Reading Location: [place] [id number]
[2024-11-30] MEDS: MELATONIN 3 MG TABLET PO (22:00)
[2024-12-01] VITALS (9 sets, daily range): BP systolic 99–121; BP diastolic 66–83; PULSE 76–105; RESP 15–18; TEMP 35.8–39.3; O2SAT 97–100
[2024-12-01 05:46] LABS: Hematocrit 35.9 % (37-47); Hemoglobin 12.4 g/dL (12.0-15.0); Mean Corp Hgb Conc 34.5 g/dL (32-36); Mean Corpuscular Volume 89.1 fL (81-99); Mean Platelet Vol. 10.4 fl (6.2-12.0); Platelet Count 255 K/mm3 (150-450); RBC Distribution Width CV 12.9 % (11.6-14.6); RBC Distribution Width SD 42.5 fl (35.1-43.9); Red Blood Count 4.03 M/mm3 (4.2-5.4); White Blood Count 15.5 K/mm3 (4.4-11.0)
[2024-12-01 06:33] LABS: AST(SGOT) 57 U/L (<=31); Alanine Aminotransfer ALT/SGPT 110 U/L (<=34); Albumin, Serum 3.6 g/dL (3.5-5.0); Alkaline Phosphatase 173 U/L (35-104); Anion Gap 11 (5-15); BUN 9 mg/dL (4-19); BUN/Creat Ratio 11.4 RATIO (10-20); Calcium,Total 8.3 mg/dL (7.6-11.0); Carbon Dioxide 19.5 mmol/L (21.0-32.0); Chloride 105 mmol/L (98-108); Estimated Creatinine Clearance 95.02 ml/min (50-250); Globulin 3.1 g/dL (2.2-4.2); Glucose 106 mg/dL (70-99); Potassium 3.7 mmol/L (3.3-5.1)
--- NOTE | 2024-12-01 08:21 | MRI_ITS ---
PROCEDURE: MRI ABD WITH AND W/O CONTRAST 12/01/2024 REASON FOR EXAM: R RENAL MASS TECHNIQUE: MRI ABD WITH AND W/O CONTRAST Multiplanar and multisequence images were obtained. CONTRAST: 13 cc Clariscan COMPARISON: November 30, 2024 CT and ultrasound FINDINGS: Liver: Unremarkable Biliary: Unremarkable Pancreas: Unremarkable Spleen: Unremarkable Adrenals: Unremarkable Kidneys: There is a circumscribed lesion in the anterior medial right kidney measuring a proximally 2.2 x 1.6 cm, axial T2 image 24/32, which shows intermediate T2, intermediate to low precontrast T1, decreased T1 arterial phase, intermediate T1 venous phase, with delayed peripheral enhancement, decreased T1 central components. There is increased T2, intermediate decreased T1 in the fat at the anterior medial right renal pole. There is no visible signal loss on the out of phase images to suggest fat. The left kidney is unremarkable. There is no visible hydronephrosis. Peritoneum / Retroperitoneum: Unremarkable Lymph Nodes: None Major Vessels: Unremarkable Bones: Unremarkable MRI/MRI Abd WITH and W/O Contrast IMPRESSION: There is a circumscribed lesion in the anterior medial right kidney measuring a proximally 2.2 x 1.6 cm, axial T2 image 24/32, which shows intermediate T2, intermediate to low precontrast T1, decreased T1 a rterial phase, intermediate T1 venous phase, with delayed peripheral enhancement, decreased T1 central components. There is incre ased T2, intermediate decreased T1 in the fat at the anterior medial right renal pole. The differential includes nonvascular tu mors, with focal acute pyelonephritis favored. Follow-up is recommended Reading Location: [facility]
--- NOTE | 2024-12-01 08:24 | PN.HOSP_ITS ---
Reason for Visit Reason for Visit: Fever Subjective Subjective Pt still having fevers and feeling poorly intermittently. Does not have history of frequent UTI's. States her last UTI was about 4 years ago. Objective Data Objective Data Vital Signs: Vital Signs Temp Pulse Resp BP Pulse Ox O2 Del Method 98.9 F 98 15 105/67 97 Room Air 12/01/24 06:06 12/01/24 03:23 12/01/24 03:23 12/01/24 03:23 12/01/24 03:23 12/01/24 03:23 Oxygen Delivery Method Room Air Weight: 65.5 kg Body Mass Index (BMI) 27.3 Intake & Output: Intake and Output for Last 24 Hours 11/29/24 11/30/24 12/01/24 23:59 23:59 23:59 Intake Total 2049 Balance 2049 Lab / Micro Data 12/01/24 05:23 12/01/24 05:23 Labs: Laboratory Results - last 24 hr 11/30/24 10:40: WBC 24.0 H, RBC 4.52, Hgb 13.7, Hct 40.0, MCV 88.5, MCH 30.3, MCHC 34.3, RDW Std Deviation 41.7, RDW Coeff of Robbi 12.7, Plt Count 295, MPV 10.7, Immature Gran % (Auto) 0.700, Neut % (Auto) 88.2 H, Lymph % (Auto) 4.2 L, [place] % (Auto) 6.7, Eos % (Auto) 0.0, Baso % (Auto) 0.2, Absolute Neuts (auto) 21.2 H, Absolute Lymphs (auto) 1.00, Nucleated RBC % 0, Differential Comment SCANNED, Sodium 134, Potassium 3.8, Chloride 100, Carbon Dioxide 20.5 L, Anion Gap 14, BUN 12, Creatinine 0.93, Estim Creat Clear Calc 75.85, Est GFR (MDRD) Non-Af 85, BUN/Creatinine Ratio 13.0, Glucose 137 H, Lactic Acid 1.0, Calcium 9.3, Total Bilirubin 1.35 H, AST 73 H, ALT 147 H, Alkaline Phosphatase 182 H, Total Protein 7.7, Albumin 4.4, Globulin 3.3, Albumin/Globulin Ratio 1.3, Serum , Qual NEGATIVE, Syphilis Total Ab Nonreactive, HIV 1&2 Antibody Nonreactive 11/30/24 12:18: Urine Color Yellow, Urine Clarity Clear, Urine pH 6.0, Ur Specific [place] 1.010, Urine Protein 30 H, Urine Glucose (UA) Normal, Urine Ketones Negative, Urine Occult Blood 25 H, Urine Nitrite Positive H, Urine Bilirubin Negative, Urine Urobilinogen 1 H, Ur Leukocyte Esterase 500 H, Urine RBC 0-5 SEEN, Urine WBC 50-100 SEEN, Ur Squamous Epith Cells 0-5 SEEN, Urine Bacteria 1+, Urine Mucus 0 SEEN 11/30/24 14:37: PT 16.8 H, INR 1.3 12/01/24 05:23: WBC 15.5 H, RBC 4.03 L, Hgb 12.4, Hct 35.9 L, MCV 89.1, MCH 30.8, MCHC 34.5, RDW Std Deviation 42.5, RDW Coeff of Robbi 12.9, Plt Count 255, MPV 10.4, Sodium 136, Potassium 3.7, Chloride 105, Carbon Dioxide 19.5 L, Anion Gap 11, BUN 9, Creatinine 0.75, Estim Creat Clear Calc 95.02, Est GFR (MDRD) Non-Af 109, BUN/Creatinine Ratio 11.4, Glucose 106 H, Calcium 8.3, Total Bilirubin 0.98, AST 57 H, ALT 110 H, Alkaline Phosphatase 173 H, Total Protein 6.7, Albumin 3.6, Globulin 3.1, Albumin/Globulin Ratio 1.2 Micro: Microbiology 11/30/24 13:18 Urine, Clean Catch Chlamydia trachomatis (PCR) - Final 11/30/24 13:18 Urine, Clean Catch Neisseria gonorrhoeae (PCR) - Final 11/30/24 13:18 Urine, Clean Catch Trichomonas vaginalis DNA - Final Radiography Diagnostic Testing: Radiology Impression Abdomen/Pelvis CT 11/30/24 13:58 IMPRESSION: 1. In the medial right inferior renal cortex, an ill-defined hypodense structure is measured at approximately 15 x 15 x 20 mm. Differential diagnosis includes hemorrhagic cyst neoplastic process. Suggest further evaluation with renal sonography, initially. 2. Unremarkable appearance of the liver, gallbladder, and pancreas. Reading Location: [facility] Renal Ultrasound 11/30/24 16:59 IMPRESSION: Right kidney masslike lesion. Further characterization with renal mass protocol CT or MRI is recommended Reading Location: [id number] Physical Exam Const alert, oriented x3, no apparent distress, average body habitus, healthy appearing and well nourished Constitutional Narrative: Young, female, sitting up in bed, appears comfortable currently, appears ill but nontoxic appears comfortable currently, eating breakfast and watching television., HEENT head/scalp atraumatic and moist oral mucous membranes Head and Scalp: normocephalic Resp normal respiratory effort, no retractions, no use of accessory muscles and clear to auscultation bilaterally Auscultation: Negative for rales, rhonchi or wheezes Cardio regular rate, regular rhythm, S1 normal heart sound, S2 normal heart sound, no murmurs, no rub, no gallops and no clicks GI normal to inspection, nondistended, normoactive bowel sounds, soft to palpation and non-tender GI Narrative: Mild right flank pain Extremity no clubbing, cyanosis or edema Extremity Narrative: 2+ pedal and radial pulses Neuro oriented x3, moves all extremities and no focal motor deficits Speech: speech normal Psych affect normal Psych Narrative: Appears comfortable, nontoxic Assessment & Plan Assessment/Plan (1) Focal pyelonephritis: (2) Elevated LFTs: (3) UTI (urinary tract infection): PLAN: Plan UTI with focal pyelonephritis secondary to E. coli - Continue ceftriaxone 2 g every 24 - Patient did not meet sepsis criteria at the time of admission - Blood cultures are pending - Patient still with rigors and fevers but her white count is improving so I suspect that this antimicrobial is appropriate Leukocytosis - Trending down - 24,000 on admission now down to 15,000 Transaminitis - Trending down with treatment of infection - Continue to monitor Abnormal right kidney on imaging - Possible mass suggested both on CT and ultrasound MRI was recommended - MRI obtained and it appears that this may be focal pyelonephritis - will obtain urine cytology as it is positive is hopeful - Will treat infection and suspect repeat imaging will be utilized before referral - Refer to Dr. Schumacher at the time of discharge DVT prophylaxis - Continue subcu Lovenox CODE STATUS - Full code Charges/Coding Visit Charges Inpatient E&M: 77551 Subs Hosp L2
[2024-12-01] MEDS: 0.9% Saline Lock 10 ML Syringe IV (12:08)
[2024-12-01] MEDS: 0.9% Normal Saline (250mL Bag) 250 ML 15 ML IV (12:08)
[2024-12-01] MEDS: Ceftriaxone 2 GM in 0.9% Normal Saline (50mL MB+) 50 ML IV (12:08)
--- NOTE | 2024-12-01 13:48 | NURSING ---
meds given late d/t pt at mri
--- NOTE | 2024-12-01 14:18 | CASEMGMT ---
Dx: Suspected Urosepsis LACE: 1 6-Clicks: 24 Medical record reviewed and patient evaluated for identification of discharge planning needs. Based on this review, at this time criteria are not present to indicate a need for discharge planning. Will remain available to assist with discharge planning needs as identified or requested.
[2024-12-02 03:25] VITALS: BP 108/71; PULSE 77; RESP 18; TEMP 36.9; O2SAT 98
[2024-12-02 04:32] LABS: Hematocrit 34.9 % (37-47); Hemoglobin 12.0 g/dL (12.0-15.0); Immature Granulocytes Count 0.040 X10^3/uL (0.0-0.0); Mean Corp Hgb Conc 34.4 g/dL (32-36); Mean Corpuscular Volume 88.4 fL (81-99); Mean Platelet Vol. 10.9 fl (6.2-12.0); NRBC Flagged by Analyzer 0 % (0-5); Platelet Count 253 K/mm3 (150-450); RBC Distribution Width CV 12.7 % (11.6-14.6); RBC Distribution Width SD 41.3 fl (35.1-43.9); Red Blood Count 3.95 M/mm3 (4.2-5.4); White Blood Count 11.6 K/mm3 (4.4-11.0)
[2024-12-02 04:49] LABS: AST(SGOT) 82 U/L (<=31); Alanine Aminotransfer ALT/SGPT 117 U/L (<=34); Albumin, Serum 3.5 g/dL (3.5-5.0); Alkaline Phosphatase 155 U/L (35-104); Anion Gap 10 (5-15); BUN 8 mg/dL (4-19); BUN/Creat Ratio 11.4 RATIO (10-20); Calcium,Total 8.6 mg/dL (7.6-11.0); Carbon Dioxide 21.9 mmol/L (21.0-32.0); Chloride 103 mmol/L (98-108); Estimated Creatinine Clearance 104.81 ml/min (50-250); Globulin 3.1 g/dL (2.2-4.2); Glucose 106 mg/dL (70-99); Magnesium 2.2 mg/dL (1.5-2.2); Potassium 3.5 mmol/L (3.3-5.1)
[2024-12-02 05:07] LABS: HEPATITIS B SURFACE AG Negative (Negative); Hep C Antibodies Non Reactive (Non Reactive)
[2024-12-02] MEDS: 0.9% Saline Lock 10 ML Syringe IV (06:06)
--- NOTE | 2024-12-02 07:14 | PCM.PN.HOSP ---
Reason for Visit Reason for Visit: Diagnoses Tubulo-interstitial nephritis, not specified as acute or chronic (11/30/24) Urinary tract infection, site not specified (11/30/24) Other specified abnormal findings of blood chemistry (11/30/24) Objective Data Objective Data Vital Signs: Vital Signs Temp Pulse Resp BP Pulse Ox O2 Del Method 98.5 F 77 18 108/71 98 Room Air 12/02/24 03:25 12/02/24 03:25 12/02/24 03:25 12/02/24 03:25 12/02/24 03:25 12/02/24 03:25 Oxygen Delivery Method Room Air Weight: 65.5 kg Body Mass Index (BMI) 27.3 Intake & Output: Intake and Output for Last 24 Hours 11/30/24 12/01/24 12/02/24 23:59 23:59 23:59 Intake Total 2049 723.75 / 723.75 Balance 2049 723.75 / 723.75 Lab / Micro Data 12/02/24 03:35 12/02/24 03:35 Labs: Laboratory Results - last 24 hr 11/30/24 14:37: Hepatitis A IgM Ab Negative, Hep Bs Antigen Negative, Hep B Core IgM Ab Negative, Hepatitis C Ab (EIA) Non Reactive, Hep C Ab Comment Comment 12/02/24 03:35: WBC 11.6 H, RBC 3.95 L, Hgb 12.0, Hct 34.9 L, MCV 88.4, MCH 30.4, MCHC 34.4, RDW Std Deviation 41.3, RDW Coeff of Robbi 12.7, Plt Count 253, MPV 10.9, Immature Gran % (Auto) 0.300, Neut % (Auto) 72.9 H, Lymph % (Auto) 15.8 L, [place] % (Auto) 10.4 H, Eos % (Auto) 0.3, Baso % (Auto) 0.3, Absolute Neuts (auto) 8.5 H, Absolute Lymphs (auto) 1.84, Nucleated RBC % 0, Sodium 136, Potassium 3.5, Chloride 103, Carbon Dioxide 21.9, Anion Gap 10, BUN 8, Creatinine 0.68 L, Estim Creat Clear Calc 104.81, Est GFR (MDRD) Non-Af 120, BUN/Creatinine Ratio 11.4, Glucose 106 H, Calcium 8.6, Phosphorus 2.3 L, Magnesium 2.2, Total Bilirubin 0.72, AST 82 H, ALT 117 H, Alkaline Phosphatase 155 H, Total Protein 6.6, Albumin 3.5, Globulin 3.1, Albumin/Globulin Ratio 1.1 Micro: Microbiology 11/30/24 12:18 Urine, Clean Catch Urine Culture - Preliminary Presumptive E. coli 11/30/24 13:18 Urine, Clean Catch Chlamydia trachomatis (PCR) - Final 11/30/24 13:18 Urine, Clean Catch Neisseria gonorrhoeae (PCR) - Final 11/30/24 13:18 Urine, Clean Catch Trichomonas vaginalis DNA - Final Radiography Diagnostic Testing: Radiology Impression Abdomen MRI 12/01/24 08:21 IMPRESSION: There is a circumscribed lesion in the anterior medial right kidney measuring a proximally 2.2 x 1.6 cm, axial T2 image , which shows intermediate T2, intermediate to low precontrast T1, decreased T1 arterial phase, intermediate T1 venous phase, with delayed peripheral enhancement, decreased T1 central components. There is increased T2, intermediate decreased T1 in the fat at the anterior medial right renal pole. The differential includes nonvascular tumors, with focal acute pyelonephritis favored. Follow-up is recommended Reading Location: [facility]
[2024-12-02] MEDS: Ceftriaxone 2 GM in 0.9% Normal Saline (50mL MB+) 50 ML IV (08:55)
[2024-12-02 09:25] VITALS: BP 108/71; PULSE 77; RESP 18; TEMP 36.9; O2SAT 98
--- NOTE | 2024-12-02 10:12 | DS.PCM_ITS ---
Providers Date of Admission: 11/30/24 Date of Discharge: 12/02/24 Primary Care Physician: Dr. Sheldon Mac MD Reason For Visit: SUSPECTED UROSEPSIS Diagnosis Discharge Diagnosis (1) Focal pyelonephritis: Status: Acute Code(s): N12 - Tubulo-interstitial nephritis, not specified as acute or chronic (2) Elevated LFTs: Status: Acute Code(s): R79.89 - Other specified abnormal findings of blood chemistry (3) UTI (urinary tract infection): Status: Acute Code(s): N39.0 - Urinary tract infection, site not specified Medications at Discharge Home Medications acetaminophen 500 mg capsule 1,000 mg PO Q6H PRN fever or pain 11/30/24 cefdinir 300 mg capsule 300 mg PO BID #22 caps 12/02/24 Hospital Course Operations None Procedures - (CT abdomen and pelvis/renal ultrasound/MRI abdomen) Summary of Care Provided Minutes Spent on Discharge: 38 Hospital Course: Patient is a 29-year-old white female who presents emergency department [facility] on 11/30/2024 with a chief complaint of fevers and concern for urinary tract infection. Patient has a history of UTI with sepsis about 4 years ago. Patient reported on presentation she started having fevers and dark urine about 2 days prior to presentation. She went to urgent care and they did a urinalysis and then recommended her come to the emergency department for further evaluation. The emergency department she was febrile at a time with a temperature of 102 and tachycardic in the low 120s. Her UA was suggestive of infection showing nitrates, leuk esterase, loaded with white cells and 1+ bacteria. test was negative. She also had a markedly elevated white count of 24,000 with mildly elevated LFTs which appears to be chronic. She was given 1 L fluids and IV ceftriaxone in the emergency department. She did have a slight blood pressure dropped into the 90s over 60s however MAP meet main greater than 65. She was proactively treated as early sepsis and admitted to PCU for ongoing care. Imaging was obtained and showed an area in the medial right inferior renal cortex and 15 x 15 x 20 mm hypodense area and sonographic evaluation was recommended. No other abnormalities were noted. Ultrasound was performed and showed a right kidney masslike lesion that recommended either CT or MRI with renal mass protocol. MRI with renal mass protocol was obtained and showed a circumscribed lesion in the anterior medial right kidney measuring 2.2 x 1.6 cm which was consistent with nonvascular tumor versus focal acute pyelonephritis which was favored. Follow-up with imaging was recommended after treatment. She also did have flank pain on exam so I do suspect this is likely pyelonephritis. Clinically she improved drastically by 12/02/2024. We did have her on Tylenol and Toradol as she was still spiking fevers on the third. She had been afebrile on medication since the third. Clinically her white count had improved to about 11,000 and her pain had improved significantly. She was anxious to go home and clinically was much more stable. She had received 3 doses of IV antibiotics prior to discharge with marked improvement in her labs so discharge was felt to be appropriate. She was able to be discharged home in stable condition to complete an 11 more days of treatment with cefdinir 300 mg p.o. twice daily. This was faxed to the hospital pharmacy prior to discharge and filled for her prior to leaving. I have given her referral to Dr. Schumacher for follow-up imaging on that kidney. If this rules out as pyelonephritis and looks to be more like tumor or malignancy patient will need to be referred to tertiary center for further evaluation and patient is aware. Patient was discharged home in stable condition with above prescription on 12/02/2024. Discharge diagnoses: Acute focal pyelonephritis right kidney E. coli UTI Leukocytosis-resolving Transaminitis Physical Exam Narrative Patient states she is overall feeling much better than overnight. She states that the Advil does help her considerably. Pain seems to be decreasing but still present right flank. White count is almost normalized. Currently getting her third dose of IV antibiotics. Const alert, oriented x3, no apparent distress, average body habitus, no limitations, healthy appearing and well nourished Constitutional Narrative: Young, female, sitting up in bed, appears nontoxic, appears comfortable, looks better than yesterday General Appearance: cooperative, comfortable, well kempt and well developed Exam Limitations: no limitations HEENT normocephalic, head/scalp atraumatic, hearing grossly normal bilaterally and moist oral mucous membranes HEENT Narrative: Mallampati 2, no thrush Eyes conjunctivae normal Eyes Narrative: No scleral icterus Neck no lymphadenopathy and supple Neck Narrative: Trachea midline Resp normal respiratory effort, normal air movement, no retractions, no use of accessory muscles and clear to auscultation bilaterally Auscultation: Negative for rales, rhonchi or wheezes Cardio regular rate, regular rhythm, S1 normal heart sound, S2 normal heart sound, no murmurs, no rub, no gallops, no clicks and peripheral pulses 2+ throughout GI normal to inspection, nondistended, normoactive bowel sounds, soft to palpation and non-tender GI Narrative: Minimal right flank pain Extremity no clubbing, cyanosis or edema Extremity Narrative: 2+ pedal and radial pulses Skin no rashes or lesions noted, no wounds, skin turgor normal and no jaundice Neuro oriented x3, moves all extremities and no focal motor deficits Speech: speech normal Psych mental status grossly normal and affect normal Psych Narrative: Appears comfortable, nontoxic Weight / BMI Weight Weight: 65.5 kg Body Mass Index (BMI) 27.3 ABG / Lab / Microbiology Data 12/02/24 03:35 12/02/24 03:35 Laboratory: Laboratory Results - last 24 hr 11/30/24 14:37: Hepatitis A IgM Ab Negative, Hep Bs Antigen Negative, Hep B Core IgM Ab Negative, Hepatitis C Ab (EIA) Non Reactive, Hep C Ab Comment Comment 12/02/24 03:35: WBC 11.6 H, RBC 3.95 L, Hgb 12.0, Hct 34.9 L, MCV 88.4, MCH 30.4, MCHC 34.4, RDW Std Deviation 41.3, RDW Coeff of Robbi 12.7, Plt Count 253, MPV 10.9, Immature Gran % (Auto) 0.300, Neut % (Auto) 72.9 H, Lymph % (Auto) 15.8 L, [place] % (Auto) 10.4 H, Eos % (Auto) 0.3, Baso % (Auto) 0.3, Absolute Neuts (auto) 8.5 H, Absolute Lymphs (auto) 1.84, Nucleated RBC % 0, Sodium 136, Potassium 3.5, Chloride 103, Carbon Dioxide 21.9, Anion Gap 10, BUN 8, C reatinine 0.68 L, Estim Creat Clear Calc 104.81, Est GFR (MDRD) Non-Af 120, BUN/Creatinine Ratio 11.4, Glucose 106 H, Calcium 8.6, Phosphorus 2.3 L, Magnesium 2.2, Total Bilirubin 0.72, AST 82 H, ALT 117 H, Alkaline Phosphatase 155 H, Total Protein 6.6, Albumin 3.5, Globulin 3.1, Albumin/Globulin Ratio 1.1 Microbiology: Microbiology 11/30/24 12:18 Urine, Clean Catch Urine Culture - Final Presumptive E. coli 11/30/24 13:18 Urine, Clean Catch Chlamydia trachomatis (PCR) - Final 11/30/24 13:18 Urine, Clean Catch Neisseria gonorrhoeae (PCR) - Final 11/30/24 13:18 Urine, Clean Catch Trichomonas vaginalis DNA - Final Radiography Diagnostic Testing: Radiology Impression Abdomen MRI 12/01/24 08:21 IMPRESSION: There is a circumscribed lesion in the anterior medial right kidney measuring a proximally 2.2 x 1.6 cm, axial T2 image , which shows intermediate T2, intermediate to low precontrast T1, decreased T1 arterial phase, intermediate T1 venous phase, with delayed peripheral enhancement, decreased T1 central components. There is increased T2, intermediate decreased T1 in the fat at the anterior medial right renal pole. The differential includes nonvascular tumors, with focal acute pyelonephritis favored. Follow-up is recommended Reading Location: [facility] Instructions Discharge Diet: No restrictions Discharge Activity: Return to Normal Activity DC O2, CPAP, BIPAP Needs Home O2 Discharge instructions: No Meaningful Use Info Meaningful Use Meaningful Use Diagnoses (Choose all that apply): None applicable Ischemic Stroke Statin Dosing Therapy Reference: STATIN DOSE THERAPY REFERENCE: * Patients > 75 years receive moderate or high dose statin therapy. * Patients 75 years or YOUNGER should receive HIGH intensity statin dose unless contraindicated. You will be required to document reason for non-treatment if statin daily dose does not meet guidelines. HIGH DOSE STATIN THERAPY DAILY Atorvastatin > than or = to 40 mg Rosuvastatin > than or = to 20 mg Amlodipine + Atorvastatin > than or = to 2.5/40 mg Ezetimibe + Simvastatin 10/80 mg Simvastatin 80mg Discharge Plan Admission Admit Date/Time: 11/30/24 13:58 Primary Reason for Your Visit: Fever Attending Provider: Nury Day Primary Care Provider: Sheldon Mac Consulting Providers: Jose M Fountain Instructions Additional Instructions / Restrictions: 1. Okay to use Advil either 600 mg every 6 hours as needed or 800 mg every 8 hours as needed. Please take on a full stomach or with food I do not use marijuana couple days in this way 2. Okay to use Tylenol up to 1 g every 6 hours as needed Discharge Orders/Prescriptions Prescriptions: New cefdinir 300 mg capsule 300 mg PO BID Qty: 22 0RF Continued acetaminophen 500 mg capsule 1,000 mg PO Q6H PRN (Reason: fever or pain) Referrals / Follow Up: Sheldon Mac MD [Primary Care Provider] - Within 1 Week Stacy Schumacher MD [Med Staff - Active Staff] - See Referral Note (Call for f/u appt to be seen in early December) Disposition Disposition (needs filled in before D/C Order can be placed): Home, Self Care Charges/Coding Visit Charges Inpatient E&M: 94257 Disch Hosp >30min
== END 2024-12-02 11:40 | disposition home or self-care (01) | DRG 463 ==
LOC: ED 13:59 → PCU 14:12
PROVIDERS: Admitting Provider Hospitalist; Emergency Provider Emergency Medicine; PCP Family Medicine; Visit Provider Internal Medicine
DX: N10 Acute pyelonephritis (principal); B96.20 Unspecified Escherichia coli [E. coli] as the cause of diseases classified elsewhere; D72.829 Elevated white blood cell count, unspecified; N39.0 Urinary tract infection, site not specified; R79.89 Other specified abnormal findings of blood chemistry; Z87.891 Personal history of nicotine dependence; R74.01 Elevation of levels of liver transaminase levels
CPT/HCPCS: 36415; 74177; 74183; 76770; 80053; 80074; 81001; 83605; 83735; 84100; 84703; 85025; 85027; 85610; 86703; 86780; 87040; 87086; 87088; 87186; 87491; 87591; 87661; 93005; 94668; 99284; A9575; Q9967; A4216; J0696; J2405